=== PATIENT | male | born 1990 | race American Indian/Alaskan Native ===

== ENCOUNTER 2021-03-26 10:02 | Emergency (ER) | payer SELFPAY ==
[2021-03-26 11:04] VITALS: BP 126/74
--- NOTE | 2021-03-26 11:20 | Emergency Department Report ---
ED General Adult HPI - General Chief complaint: Eye Problems Stated complaint: R EYE INFLAMMATION PUI?: No Time Seen by Provider: 03/26/21 10:50 Source: patient Mode of arrival: Ambulatory Limitations: No Limitations - History of Present Illness Initial comments: cc: eye swollen HPI: THis is a healthy 31 yo male without significant medical history who presents with right eye swelling for 2 days. Had irritation. Used antibiotic ointment. Now upper and lower eyelid swelling. NO trauma. NO fever. No cough. -: Gradual, days(s) (2 days) Severity scale (0 -10): 0 Consistency: constant Improves with: none Worsens with: none Associated Symptoms: other (periorbital swelling) - Related Data Previous Rx's Medication Instructions Recorded Last Taken Type Amoxicillin/Potassium Clav 1 each PO BID 10 Days #20 tablet 03/26/21 Unknown Rx [Augmentin 875-125 Tablet] Allergies Allergy/AdvReac Type Severity Reaction Status Date / Time lactose AdvReac Vomiting Verified 03/26/21 11:03 ED Review of Systems ROS: Stated complaint: R EYE INFLAMMATION Other details as noted in HPI Constitutional: denies: fever, malaise Respiratory: denies: cough, shortness of breath Gastrointestinal: denies: abdominal pain, nausea, vomiting ED Past Medical Hx - Past Medical History Previous Medical History?: No - Social History Smoking Status: Never Smoker Substance Use Type: None - Medications Home Medications: Home Medications Medication Instructions Recorded Confirmed Last Taken Type Amoxicillin/Potassium Clav 1 each PO BID 10 Days #20 tablet 03/26/21 Unknown Rx [Augmentin 875-125 Tablet] ED Physical Exam - General Limitations: No Limitations General appearance: alert, in no apparent distress - Head Head exam: Present: atraumatic, normocephalic - Eye Eye exam: Present: conjunctival injection, periorbital swelling - ENT ENT exam: Present: mucous membranes moist - Neck Neck exam: Present: normal inspection, full ROM - Respiratory Respiratory exam: Absent: respiratory distress - Psychiatric Psychiatric exam: Present: normal affect, normal mood - Skin Skin exam: Present: warm, dry, intact, normal color - Other Other exam information: right eye periorbital swelling with erythema, no discharge ED Course Vital Signs 03/26/21 03/26/21 10:08 10:58 Temperature 98.2 F 98.6 F Pulse Rate 93 H 81 Respiratory 15 16 Rate Blood Pressure 161/109 126/74 Blood Pressure 126/74 [Left] O2 Sat by Pulse 97 99 Oximetry ED Medical Decision Making - Medical Decision Making Right periorbital cellulitis: No evidence of orbital cellulitis. Prescribed Augmentin. Referred to outpatient medicine physician. Critical care attestation.: If time is entered above; I have spent that time in minutes in the direct care of this critically ill patient, excluding procedure time. ED Disposition Clinical Impression: Periorbital cellulitis of right eye Disposition: HOME / SELF CARE / HOMELESS Is pt being admited?: No Does the pt Need Aspirin: No Condition: Stable Instructions: Preseptal Cellulitis, Adult Prescriptions: Amoxicillin/Potassium Clav [Augmentin 875-125 Tablet] 1 each PO BID 10 Days #20 tablet Referrals: REDD MUÑIZ MD [Staff Physician] - 3-5 Days
== END 2021-03-26 11:30 | disposition home or self-care (01) ==
LOC: ED 10:02
DX: H00.032 Abscess of right lower eyelid (principal); H00.031 Abscess of right upper eyelid
CPT/HCPCS: 99282

== ENCOUNTER 2021-07-16 16:46 | Emergency (ER) | payer SELFPAY ==
[2021-07-16] MEDS ORDERED: MORPHINE 4 MG/1 ML INJ IV ONE (16:48)
[2021-07-16] MEDS ORDERED: SODIUM CHLORIDE 0.9% 1000 ML 1,000 ML IV ONE (16:48)
[2021-07-16] MEDS ORDERED: ONDANSETRON 4 MG/2 ML INJ IV ONE (16:48)
[2021-07-16] MEDS ORDERED: SODIUM CHLORIDE 0.9% IRR 500 ML BOTTLE IR ONE (16:53)
[2021-07-16] MEDS ORDERED: TETANUS,DIPHTHERIA TOXOID ADULT 0.5 ML INJ IM ONE (17:00)
[2021-07-16 17:01] LABS: Basophils % (Auto) 0.4 % (0.0-1.8); Eosinophils # (Auto) 0.3 K/mm3 (0.0-0.4); Eosinophils % (Auto) 2.7 % (0.0-4.3); Hematocrit 47.7 % (35.5-45.6); Hemoglobin 15.6 gm/dl (11.8-15.2); Lymphocytes # (Auto) 4.1 K/mm3 (1.2-5.4); Lymphocytes % (Auto) 37.8 % (13.4-35.0); Mean Corpuscular HGB Conc 33 % (32-34); Mean Corpuscular Volume 99 fl (84-94); Monocytes # (Auto) 0.9 K/mm3 (0.0-0.8); Monocytes % (Auto) 8.1 % (0.0-7.3); Platelet Count 390 K/mm3 (140-440); Red Blood Count 4.81 M/mm3 (3.65-5.03); Red Cell Distribution Width 13.5 % (13.2-15.2)
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
[2021-07-16 17:17] LABS: INR 0.92 (0.87-1.13)
[2021-07-16 17:19] LABS: Alanine Aminotransferase 15 units/L (7-56); Albumin 4.8 g/dL (3.9-5); BUN/Creatinine Ratio 10; Blood Urea Nitrogen 10 mg/dL (9-20); Calcium 9.6 mg/dL (8.4-10.2); Hemolysis Index 19
[2021-07-16 17:21] VITALS: BP 129/85
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
== END 2021-07-16 17:59 | disposition hospice, inpatient (51) ==
LOC: ED 16:46
DX: S82.91XB Unspecified fracture of right lower leg, initial encounter for open fracture type I or II (principal); W34.09XA Accidental discharge from other specified firearms, initial encounter; Y93.89 Activity, other specified; Y92.89 Other specified places as the place of occurrence of the external cause; Y99.8 Other external cause status
CPT/HCPCS: 36415; 71045; 73590; 80053; 82550; 85025; 85610; 90471; 90714; 96361; 96365; 96375; 99285; J0690; J2270; J2405; J7030; 80320; Q0162; G0480